=== PATIENT | female | born 1970 | race African-American/Black ===

== ENCOUNTER 2018-06-04 19:31 | Emergency (ER) | payer SELFPAY ==
[~2018-06-04] VITALS: Ht 162.6 cm; Wt 58.6 kg
[2018-06-04 19:35] VITALS: BP 134/88
== END 2018-06-04 20:08 | disposition home or self-care (01) ==
LOC: ED 19:50
DX: Z00.00 Encounter for general adult medical examination without abnormal findings (principal)
CPT/HCPCS: 99281

== ENCOUNTER 2019-01-25 20:02 | Emergency (ER) | payer SELFPAY ==
[~2019-01-25] VITALS: Ht 170.2 cm; Wt 59.9 kg
[2019-01-25 20:04] VITALS: BP 114/73
[2019-01-25] MEDS ORDERED: KETOROLAC 30 MG/1 ML ONE (21:10)
[2019-01-25] MEDS ORDERED: KETOROLAC 30 MG/1 ML IM ONE (21:30)
[2019-01-25 21:32] LABS: HCG UR SG 1.031 (1.003-1.030); MICROSCOPIC NOT IND
[2019-01-25 21:40] LABS: CULTURE INDICATED? NO
[2019-01-25] MEDS ORDERED: CEFAZOLIN 1,000 MG IM ONE (22:00)
--- NOTE | 2019-01-25 22:13 | NUR ---
DC EDUCATION PROVIDED, PT DEMONSTRATES UNDERSTANDING. PT AMBULTED STEADILY TO DC WITH RN
== END 2019-01-25 22:15 | disposition home or self-care (01) ==
LOC: ED 22:00
DX: M54.5 Low back pain (principal)
CPT/HCPCS: 72110; 81003; 81025; 96372; 99284; J1885

== ENCOUNTER 2019-08-25 11:56 | Emergency (ER) | payer BC ==
[~2019-08-25] VITALS: Ht 170.2 cm; Wt 58.3 kg
--- NOTE | 2019-08-25 12:43 | NUR ---
PT AMBULATORY TO ROOM FROM LOBBY
[2019-08-25] MEDS ORDERED: HYDROcodone/APAP 5/325 TABLET ONE (13:22)
[2019-08-25] MEDS ORDERED: HYDROcodone/APAP 5/325 TABLET PO ONE (13:30)
[2019-08-25 15:29] VITALS: BP 124/87
--- NOTE | 2019-08-25 15:30 | NUR ---
Patient/Caregiver given discharge instructions and they have confirmed that they understand the instructions. Patient ambulatory with steady gait.
== END 2019-08-25 15:36 | disposition home or self-care (01) ==
LOC: ED 15:33
DX: S05.11XA Contusion of eyeball and orbital tissues, right eye, initial encounter (principal); V47.5XXA Car driver injured in collision with fixed or stationary object in traffic accident, initial encounter; Y93.89 Activity, other specified; Y92.89 Other specified places as the place of occurrence of the external cause; Y99.8 Other external cause status; F17.210 Nicotine dependence, cigarettes, uncomplicated
CPT/HCPCS: 70486; 99284